=== PATIENT | male | born 1965 | race African-American/Black ===

== ENCOUNTER 2020-08-10 06:27 | Emergency (ER) | payer OTHER ==
[~2020-08-10] VITALS: Ht 152.4 cm; Wt 49.9 kg
[2020-08-10 06:39] VITALS: BP 144/85; Ht 152.4 cm; Wt 49.9 kg
[2020-08-10 06:51] LABS: BASOPHILS 0 % (0-2); EOSINOPHILS 0.2 % (0-7); HEMATOCRIT 38.9 % (42.0-54.0); IMMATURE GRANULOCYTES 0.2 % (0-5); LYMPHOCYTE ABS# 1.52 10x3/uL (1.32-3.57); LYMPHOCYTES 29.7 % (15-50); MCH 27.4 pg (26.0-34.0); MCHC 33.4 g/dL (31.0-37.0); MCV 81.9 fL (80.0-100.0); MEAN PLATELET VOLUME 9.4 fL (7.4-10.4); MONOCYTES 13.9 % (2-11); NEUTROPHIL ABS# 2.86 10x3/uL (1.78-5.38); PLATELET COUNT 224 10x3/uL (130-400); RBC 4.75 10x6/uL (4.20-6.10); RDW 14.9 % (11.5-14.5); WBC 5.1 10x3/uL (4.8-10.8)
[2020-08-10] MEDS ORDERED: AUGMENTIN 875-11 TAB PO (06:56)
[2020-08-10] MEDS ORDERED: TESSALON PERLE100 MG PO (06:56)
[2020-08-10] MEDS ORDERED: AZITHROMYCIN500 MG PO (06:56)
[2020-08-10 07:11] LABS: CALC OSMOLALITY 279 mosm/kg (275-300); CALCIUM 8.4 mg/dL (8.5-10.1); CARBON DIOXIDE 26.6 mmol/L (21.0-32.0); CHLORIDE - SERUM 105 mmol/L (98-107); GLUCOSE 100 mg/dL (74-106); POTASSIUM - SERUM 4.3 mmol/L (3.5-5.1); SODIUM 139 mmol/L (136-145); UREA NITROGEN 19 mg/dL (7-18); eGFR NON AFRICAN AMERICAN 82 mL/min (90-120)
[2020-08-10 07:19] LABS: ALKALINE PHOSPHATASE 152 U/L (30-120); ALT (SGPT) 33 U/L (10-68); BILIRUBIN - TOTAL 0.52 mg/dL (0.2-1.3); PRO BNP 149 pg/mL (0-125); PROTEIN - SERUM 7.3 g/dL (6.4-8.2)
[2020-08-10 07:21] LABS: TROPONIN-I < 0.017 ng/mL (0.000-0.060)
== END 2020-08-10 07:46 | disposition home or self-care (01) ==
LOC: D.ER 06:27
PROVIDERS: Family Medicine
DX: I10 Essential (primary) hypertension (principal); J18.9 Pneumonia, unspecified organism; R05 Cough